=== PATIENT | female | born 1995 | race Caucasian/White ===

== ENCOUNTER 2018-04-07 13:39 | Outpatient (REF) | payer BC, SELFPAY ==
--- NOTE | 2018-04-07 11:30 | PAPFT_PTH ---
PATIENT: Yolande Crandall LOC: [facility] U#:[id number] AGE/SX: 22/F ROOM: RE04/07/[address]: PAGE Watson : 1995 BED: DIS: 04/07/2018 SPEC #: [id number] RECD: 04/07/18 17:51 STATUS: LILIANA RETrinity #: [id number] KATY: 04/07/18 11:[address]: Shadia Teran DEPT: [facility] Cytology RECD BY: Maday Lehman ENTERED: 04/07/18 17:51 SP TYPE: PAPFT FELIPE DR: Unknown,Unknown Tissues: 1 - CX/ENDOCX FOR PAP SMEARS Procedures: PAP THIN PREP/[facility] Screening Comments: [id number]
== END 2018-04-07 13:59 ==
LOC: LBN 13:39
PROVIDERS: Visit Provider Nurse Practitioner Family
DX: Z12.4 Encounter for screening for malignant neoplasm of cervix (principal)
CPT/HCPCS: 88142

== ENCOUNTER 2018-07-30 13:58 | Outpatient (REF) | payer BC, SELFPAY ==
[2018-08-03 13:51] LABS: Chlamydia Result Negative; GC Result Negative; Specimen Description CERVIX
== END 2018-07-30 14:18 ==
LOC: LBN 13:58
PROVIDERS: Visit Provider Nurse Practitioner Women's Health
DX: Z11.3 Encounter for screening for infections with a predominantly sexual mode of transmission (principal)
CPT/HCPCS: 87491; 87591

== ENCOUNTER 2019-09-03 12:38 | Outpatient (REF) | payer BC, SELFPAY ==
--- NOTE | 2019-09-03 10:15 | PAPFT_PTH ---
PATIENT: Yolande Crandall LOC: [facility] U#:[id number] AGE/SX: 24/F ROOM: RE09/03/[address]: PAGE Watson : 1995 BED: DIS: 09/03/2019 SPEC #: [id number] RECD: 09/03/19 13:04 STATUS: LILIANA RETrinity #: [id number] KATY: 09/03/19 10:[address]: Shadia Teran DEPT: [facility] Cytology RECD BY: Maday Lehman ENTERED: 09/03/19 13:04 SP TYPE: PAPFT OT DR: Unknown,Unknown Tissues: 1 - CX/ENDOCX FOR PAP SMEARS Procedures: PAP THIN PREP/UVM Screening HPV DNA PROBE Comments: [id number]
[2019-09-06 14:37] LABS: GC Result Negative (Negative)
[2019-09-06 15:34] LABS: Chlamydia Result Positive (Negative)
== END 2019-09-03 12:58 ==
LOC: LBN 12:38
PROVIDERS: Visit Provider Nurse Practitioner Family
DX: Z11.3 Encounter for screening for infections with a predominantly sexual mode of transmission (principal); Z12.4 Encounter for screening for malignant neoplasm of cervix
CPT/HCPCS: 87491; 87591; 88142; 87624

== ENCOUNTER → 2021-04-30 12:21 | Outpatient (CLI) | payer BC, SELFPAY ==
--- NOTE | 2021-04-30 12:00 | DI.US_ITS ---
Exam(s) US OB 2-3 TRIMESTER W MOD EXAM: US OB 2-3 TRIMESTER W MOD CLINICAL HISTORY: unknown LMP, likely >12 weeks, need LUISITO, modified - pt around 15 wks.. TECHNIQUE: Transabdominal obstetrical ultrasound was performed. COMPARISON: No exams were available for comparison FINDINGS: There is a single viable intrauterine gestation with cardiac activity identified-152 bpm. Amniotic fluid: There is a normal amount of amniotic fluid. Placental location: The placenta is anterior grade 0,with no evidence of placenta previa.Distance fro m the tip of placenta to the internal cervical os is [address] this at approximately 16 weeks gestational age. BPD measures 16 weeks and 0 days HC measures 16 weeks and 1 day AC measures 16 weeks and 3 days FL measures 15 weeks and 1 day Estimated weight is 138 gm-0 pounds 5 ounces IMPRESSION:: Single viable intrauterine gestation which is approximately 16 weeks gestational age, i mplying an LUISITO of October 15, 2021. The placenta is anterior grade 0 with no evidence of placenta previa. There is a normal amount of amniotic fluid. DATA REPOSITORY:
== END ==
PROVIDERS: Visit Provider Advanced Practice Midwife
DX: Z34.92 Encounter for supervision of normal pregnancy, unspecified, second trimester (principal)
CPT/HCPCS: 76805

== ENCOUNTER 2021-05-08 11:22 | Outpatient (REF) | payer BC, SELFPAY ==
[2021-05-08 11:10] LABS: Kit/Specimen SENT
[2021-05-08 11:38] LABS: Abs Immature Grans 0.05 10^3/uL (0.0-0.06); Absolute Basophil Count 0.02 10^3/uL (0.0-0.2); Absolute Eosinophil Count 0.03 10^3/uL (0.0-0.7); Absolute Lymphocyte Count 1.76 10^3/uL (1.2-3.4); Absolute Monocyte Count 0.52 10^3/uL (0.1-0.8); Absolute Neutrophil Count 8.14 10^3/uL (1.2-6.7); Basophils % 0.2; Eosinophils % 0.3; HCT 35.9 % (36.0-46.0); HGB 11.9 g/dL (11.2-15.7); Immature Grans % 0.5; Lymphocytes % 16.7; MCH 31.3 pg (27.0-33.0); MCHC 33.1 % (32.0-36.0); MCV 94.5 fL (80-95); MPV 10.2 fL (8.0-11.0); Monocytes % 4.9; Neutrophils % 77.4; Nucleated RBC 0 %; Platelet Count 294 10^3/uL (130-400); RDW 12.3 % (11.7-14.6); RDW-SD 42.9 fL; WBC 10.52 10^3/uL (4.4-10.8)
[2021-05-08 14:12] LABS: *AMPHETAMINES SCREEN URINE Negative (Negative); *BARBITURATES SCREEN URINE Negative (Negative); *BENZODIAZEPINES SCREEN URINE Negative (Negative); Cannabinoids THC Negative (Negative); Cocaine Screen,Urine Negative (Negative); METHADONE URINE SCREEN Negative (Negative); OPIATES URINE SCREEN Negative (Negative); Tricyclic Antidepressants Negative (Negative)
[2021-05-09 09:07] LABS: Hepatitis B Surface Ag Negative (Negative)
[2021-05-09 09:39] LABS: Hepatitis C Ab w Rflx HCV PCR Negative (Negative)
[2021-05-09 09:54] LABS: HIV-1/2 Ag & Ab Screen Negative (Negative)
[2021-05-09 11:20] LABS: Rubella IgG Ab (UVM) Positive (See Note); Varicella IgG Antibody Positive (See Note)
[2021-05-09 14:42] LABS: Syphilis Total Ab w/Reflex Nonreactive (Nonreactive)
[2021-05-09 16:17] LABS: Chlamydia Result Negative (Negative); GC Result Negative (Negative)
[2021-05-15 15:06] LABS: Result Summary NEGATIVE; Specimen WB Whole Blood
[2021-05-16 09:46] LABS: Buprenorphine Negative ng/mL (Cutoff: 5.0); Norbuprenorphine Negative ng/mL (Cutoff: 2.5)
[2021-05-16 22:21] LABS: Specimen WB Whole Blood
== END 2021-05-08 11:23 | disposition home or self-care (01) ==
LOC: LBO 11:22
PROVIDERS: Visit Provider Advanced Practice Midwife
DX: Z34.92 Encounter for supervision of normal pregnancy, unspecified, second trimester; Z36.89 Encounter for other specified antenatal screening; Z3A.16 16 weeks gestation of pregnancy
CPT/HCPCS: 36415; 80307; 81329; 86787; 86803; 86850; 86900; 86901; 87340; 87389; 87491; 87591; 81220; 85025; 86762; 86780; 87086; 87480; 87510; 87660

== ENCOUNTER 2021-05-08 14:37 | Outpatient (REF) | payer BC, SELFPAY ==
--- NOTE | 2021-05-08 09:50 | PAPFT_PTH ---
PATIENT: Yolande Crandall LOC: [facility] U#:[id number] AGE/SX: 25/F ROOM: RE05/08/[address]: Frances Raymundo CNM : 1995 BED: DIS: 05/08/2021 SPEC #: [id number] RECD: 05/08/21 18:10 STATUS: LILIANA REQ #: [id number] KATY: 05/08/21 09:[address]: Frances Raymundo DEPT: [facility] Cytology RECD BY: Maday Lehman ENTERED: 05/08/21 18:11 SP TYPE: PAPFT OTHR DR: Unknown,Unknown Tissues: 1 - CX/ENDOCX FOR PAP SMEARS Procedures: PAP THIN PREP/UVM Screening Comments: [id number]
== END 2021-05-08 14:38 | disposition home or self-care (01) ==
LOC: LBN 14:37
PROVIDERS: Visit Provider Advanced Practice Midwife
DX: Z12.4 Encounter for screening for malignant neoplasm of cervix (principal)
CPT/HCPCS: 88142

== ENCOUNTER 2021-05-22 02:49 | Outpatient (CLI) | payer BC, SELFPAY ==
[2021-05-22 10:08] LABS: Glucose,1 Hr (Glucola) 79 mg/dL (80-140)
== END 2021-05-22 02:50 | disposition home or self-care (01) ==
LOC: LBO 02:49
PROVIDERS: Advanced Practice Midwife; Visit Provider Advanced Practice Midwife
DX: Z34.92 Encounter for supervision of normal pregnancy, unspecified, second trimester (principal); Z3A.19 19 weeks gestation of pregnancy
CPT/HCPCS: 36415; 82950

== ENCOUNTER 2021-07-18 00:35 | Outpatient (CLI) | payer BC, SELFPAY ==
[2021-07-18 10:30] VITALS: BP 120/73; PULSE 113; RESP 20; TEMP 36.9; O2SAT 99
[2021-07-18] MEDS: Normal Saline 500 ML 30 ML IV (10:42)
[2021-07-18] MEDS: Normal Saline Flush 10 ML SYR IVP (10:42)
[2021-07-18 10:52] VITALS: BP 120/73; PULSE 113; RESP 20; TEMP 36.9; O2SAT 99
[2021-07-18 11:11] VITALS: BP 108/69; PULSE 108; RESP 22; TEMP 37.5; O2SAT 98
[2021-07-18 11:32] VITALS: BP 117/80; PULSE 111; RESP 24; TEMP 37.6; O2SAT 98
[2021-07-18 12:18] VITALS: BP 117/77; PULSE 101; RESP 22; TEMP 37; O2SAT 98
== END 2021-07-18 12:32 | disposition home or self-care (01) ==
LOC: INF 00:37
PROVIDERS: Visit Provider Family Medicine
DX: U07.1 COVID-19 (principal)
CPT/HCPCS: 96365

== ENCOUNTER 2021-07-31 08:57 | Outpatient (CLI) | payer MEDICAID, SELFPAY ==
[2021-07-31 11:12] LABS: Glucose,1 Hr (Glucola) 140 mg/dL (80-140)
[2021-07-31 11:13] LABS: HCT 35.2 % (36.0-46.0); HGB 11.7 g/dL (11.2-15.7); MCH 31.1 pg (27.0-33.0); MCHC 33.2 % (32.0-36.0); MCV 93.6 fL (80-95); Platelet Count 276 10^3/uL (130-400); RBC 3.76 10^6/uL (3.93-5.22); RDW 12.4 % (11.7-14.6); RDW-SD 42.9 fL; WBC 13.48 10^3/uL (4.4-10.8)
== END 2021-07-31 08:58 | disposition home or self-care (01) ==
LOC: LBO 08:58
PROVIDERS: Visit Provider Advanced Practice Midwife
DX: Z34.93 Encounter for supervision of normal pregnancy, unspecified, third trimester (principal); Z3A.29 29 weeks gestation of pregnancy
CPT/HCPCS: 36415; 82950; 85027

== ENCOUNTER 2021-07-31 10:01 | Outpatient (CLI) | payer MEDICAID, SELFPAY ==
[2021-07-31 10:09] VITALS: BP 118/69; PULSE 86; TEMP 36.9
[2021-07-31 10:24] VITALS: BP 118/69; PULSE 86
--- NOTE | 2021-07-31 10:48 | W.OBNST ---
Date of service: 07/31/21 Time of Service: 10:48 NST Evaluation Reason for NST Reasons for Nonstress Test: DECREASED MOVEMENT Gestational Age Gestational Age in Weeks and Days: 29 Weeks and 1Days Test and Monitor Explained Test/Monitor Explained: Test Explained, Monitor Explained and Patient Verbalized Understanding Vital Signs Blood Pressure: 118/69 Pulse: 86 Temperature: 98.4 F NST Information Date on Monitor: 07/31/21 Time on Monitor: 10:13 Date off Monitor: 07/31/21 Time off Monitor: 10:30 Total Time on Monitor: 17 NST Interventions: None NST Evaluation Patient States Movement: Present FHR Baseline: 145 Variability: Moderate 6-25 bpm Accelerations: 10x10 Decelerations: None NST Results: Reactive Note NST Note Note: NST done due to perceived in intensity of movement. NST is reassuring for 29 weeks gestation with 10 X 10 or greater accelerations and moderate variability. We reviewed that placenta is anterior and may lead to some diminished intensity of movement but that she should report any further concerns as they occur. MARILYN NST Reviewed and Verified by: Frances Raymundo
[2021-07-31 10:50] VITALS: BP 118/69; PULSE 86; TEMP 36.9
== END 2021-07-31 10:30 | disposition home or self-care (01) ==
LOC: BCD 10:02 → OBS 10:07
PROVIDERS: Visit Provider Advanced Practice Midwife
DX: O36.8130 Decreased fetal movements, third trimester, not applicable or unspecified (principal); Z3A.29 29 weeks gestation of pregnancy
CPT/HCPCS: 59025

== ENCOUNTER 2021-08-08 03:51 | Outpatient (CLI) | payer MEDICAID, SELFPAY | END 2021-08-08 03:52 | disposition home or self-care (01) | LOC: LBO 03:53 | PROVIDERS: Visit Provider Advanced Practice Midwife ==

== ENCOUNTER 2021-08-16 04:16 | Outpatient (CLI) | payer MEDICAID, SELFPAY ==
[2021-08-16 09:20] LABS: Glucose 1 Hour 136 mg/dL
[2021-08-16 11:38] LABS: Glucose 3 Hour 95 mg/dL
== END 2021-08-16 04:17 | disposition home or self-care (01) ==
LOC: LBO 04:16
PROVIDERS: Visit Provider Advanced Practice Midwife
DX: Z34.93 Encounter for supervision of normal pregnancy, unspecified, third trimester (principal)
CPT/HCPCS: 36415; 82951

== ENCOUNTER → 2021-09-11 01:08 | Outpatient (CLI) | payer BC, MEDICAID, SELFPAY ==
--- NOTE | 2021-09-11 07:00 | DI.US_ITS ---
Exam(s) US OB LISA WEIGHT EXAM: US OB LISA WEIGHT CLINICAL HISTORY: Covid infection in ,O98.513,U07.1. TECHNIQUE: Transabdominal obstetrical ultrasound performed. COMPARISON: US US OB 2-3 TRIMESTER from 05/29/2021 FINDINGS: Transabdominal obstetrical ultrasound performed. FINDINGS: Number of fetuses: One. position: Cephalic. Placental location: Grade 1 anterior placenta. No evidence of previa. BIOMETRIC DATA: BPD: 88 mm = 35 weeks 2 days HC: 323 mm = 36 weeks 4 days AC: 324 mm = 36 weeks 2 days FL: 69 mm = 35 weeks 4 days EFW: 2824 grms 72% Composite Age: 36 weeks EDC: 10/09/2021 Heart Rate: 152BPM Amniotic fluid index: 17.1 cm. Visually, amount of fluid is within normal limits. IMPRESSION: 1. Single live intrauterine gestation as above. 2. Estimated weight is 2824gms. 3. Amniotic fluid index is 17.1 cm. Visually within normal limits. DATA REPOSITORY:
== END ==
PROVIDERS: Visit Provider Advanced Practice Midwife
DX: O98.513 Other viral diseases complicating pregnancy, third trimester (principal); U07.1 COVID-19; Z3A.36 36 weeks gestation of pregnancy
CPT/HCPCS: 76816

== ENCOUNTER 2021-09-18 15:47 | Outpatient (REF) | payer BC, MEDICAID, SELFPAY ==
[2021-09-18 21:58] LABS: *AMPHETAMINES SCREEN URINE Negative (Negative); *BARBITURATES SCREEN URINE Negative (Negative); *BENZODIAZEPINES SCREEN URINE Negative (Negative); Cannabinoids THC Negative (Negative); Cocaine Screen,Urine Negative (Negative); METHADONE URINE SCREEN Negative (Negative); OPIATES URINE SCREEN Negative (Negative)
[2021-09-18 22:00] LABS: Tricyclic Antidepressants Negative (Negative)
[2021-09-22 13:51] LABS: Buprenorphine Negative ng/mL (Cutoff: 5.0)
== END 2021-09-18 15:48 | disposition home or self-care (01) ==
LOC: LBN 15:47
PROVIDERS: Visit Provider Advanced Practice Midwife
DX: Z34.93 Encounter for supervision of normal pregnancy, unspecified, third trimester (principal); Z36.85 Encounter for antenatal screening for Streptococcus B; Z3A.36 36 weeks gestation of pregnancy
CPT/HCPCS: 80307; 87081

== ENCOUNTER 2021-10-02 11:39 | Outpatient (CLI) | payer BC, MEDICAID, SELFPAY ==
[2021-10-02 11:48] VITALS: BP 131/83; PULSE 100; TEMP 36.7
[2021-10-02 11:58] VITALS: BP 131/83; PULSE 100
--- NOTE | 2021-10-02 12:14 | PDOC.NST_ITS ---
Date of service: 10/02/21 Time of Service: 12:14 NST Evaluation Reason for NST Reasons for Nonstress Test: DECREASED MOVEMENT Gestational Age Gestational Age in Weeks and Days: 29 Weeks and 1Days Vital Signs Blood Pressure: 131/83 NST Evaluation Patient States Movement: Present FHR Baseline: 135 Variability: Moderate 6-25 bpm Accelerations: 15x15 Decelerations: None NST Results: Reactive Note NST Note Note: Yolande has been noticing decreased movement. She was seen at [facility] today. The baby is active now. Reactive NST. NST Reviewed and Verified by: Frances Dominguez
[2021-10-03 08:31] VITALS: BP 131/83
== END 2021-10-02 12:15 | disposition home or self-care (01) ==
LOC: BCD 11:39 → OBS 11:45
PROVIDERS: PCP Advanced Practice Midwife; Visit Provider Advanced Practice Midwife
DX: O36.8130 Decreased fetal movements, third trimester, not applicable or unspecified (principal); O26.893 Other specified pregnancy related conditions, third trimester; Z3A.38 38 weeks gestation of pregnancy
CPT/HCPCS: 59025

== ENCOUNTER 2021-10-21 18:30 | Inpatient (IN) | payer BC, MEDICAID, SELFPAY ==
[2021-10-21] VITALS (46 sets, daily range): BP systolic 109–161; BP diastolic 55–105; PULSE 0–153; RESP 18; TEMP 36.8; O2SAT 97–100; BMI 35.1
[2021-10-21 20:04] LABS: Source Nasal/Nares
[2021-10-21 20:43] LABS: COVID-19 PCR Negative (Negative)
[2021-10-21] MEDS: Normal Saline Flush 10 ML SYR IVP (21:50)
[2021-10-21 22:00] LABS: HCT 37.6 % (36.0-46.0); HGB 12.6 g/dL (11.2-15.7); MCH 29.8 pg (27.0-33.0); MCHC 33.5 % (32.0-36.0); MCV 88.9 fL (80-95); MPV 10.7 fL (8.0-11.0); Platelet Count 249 10^3/uL (130-400); RBC 4.23 10^6/uL (3.93-5.22); RDW 13.3 % (11.7-14.6); RDW-SD 43.4 fL; WBC 16.99 10^3/uL (4.4-10.8)
[2021-10-21] MEDS: Lactated Ringers 1,000 ML 125 ML IV (22:00)
--- NOTE | 2021-10-21 22:25 | W.ANESPRE ---
General Info Date of Service Date Performed: 10/21/21 Height: 5 ft 2 in Weight: 87.09 kg Body Mass Index (BMI): 35.1 Meds Allergies and Home Medications Allergies Allergy/AdvReac Type Severity Reaction Status Date / Time No Known Allergies Allergy Verified 10/21/21 18:36 Home Medication Medication Instructions Recorded vitamins with calcium 1 tab PO DAILY #90 tab 04/23/21 no.72-iron 29 mg-folic acid 1 mg tablet ( Plus) aspirin 81 mg tablet,delayed 81 mg PO DAILY #90 tab 05/22/21 release Current Visit Medications: Current Medications Generic Name Dose Route Start Last Admin Trade Name Freq PRN Reason Stop Dose Admin Sodium Chloride 500 mls @ 0 mls/hr 10/21/21 21:36 Saline 500ml Bag IV PRN PRN As Directed Sodium Chloride 500 mls @ 0 mls/hr 10/21/21 21:42 Saline 500ml Bag IV PRN PRN As Directed IV Miscellaneous Supplies 1 each 10/21/21 21:45 Iv Access IV DIRECTED ADONAY IV Miscellaneous Supplies 1 each 10/21/21 21:45 Iv Access IV DIRECTED ADONAY Sodium Chloride 0 ml 10/21/21 21:36 Normal Saline Flush 10 Ml Syr IVP PRN PRN Sodium Chloride 0 ml 10/21/21 21:42 Normal Saline Flush 10 Ml Syr IVP PRN PRN PFSH Active Problems Active Problems: Problem Status Onset Code COVID-19 affecting in third trimester O98.513, U07.1 BMI 30.0-30.9,adult Z68.30 Z34.90 Exercise-induced asthma 10/21/12 J45.990 Medical History Medical History (Updated 10/21/21 @ 22:33 by Frances Dominguez CNM) Contraception Date of last menstrual period (LMP) unknown Missed menses Positive blood test Tobacco Smoking/Tobacco Use Status: Former Tobacco Use Second hand exposure: No Substance Use Substance use: Never Prental History History 1 Para 0 Hx # Term Pregnancies 0 Multiple births 0 Hx # Pregnancies 0 Ectopic pregnancies 0 AB induced 0 Hx Number of Living Children 0 AB spontaneous 0 Vital Signs and Lab Results Vital Signs Most Recent Vital Signs in EMR: Most Recent Vital Signs Temp Pulse Resp BP 36.8 C 110 H 18 136/88 10/21/21 18:45 10/21/21 22:21 10/21/21 18:45 10/21/21 21:22 Lab Results Result Diagrams: 10/21/21 21:47 Blood Type / Crossmatch: Patient ABO/Rh A Positive 10/21/21 Antibody Screen NEGATIVE 10/21/21 Complete Blood Count: White Blood Count 16.99 10^3/uL (4.4-10.8) H 10/21/21 21:47 10/21/21 Red Blood Count 4.23 10^6/uL (3.93-5.22) 10/21/21 21:47 10/21/21 Hemoglobin 12.6 g/dL (11.2-15.7) 10/21/21 21:47 10/21/21 Hematocrit 37.6 % (36.0-46.0) 10/21/21 21:47 10/21/21 Platelet Count 249 10^3/uL (130-400) 10/21/21 21:47 10/21/21 Complete Metabolic Panel: No Data to Display Liver Function Panel: No Data to Display Coagulation Panel: No Data to Display Cardiac Panel: No Data to Display Arterial Blood Gas: No Data to Display Venous Blood Gas: No Data to Display Pancreas Panel: No Data to Display Thyroid Panel: No Data to Display Infectious Disease: Coronavirus (COVID-19)(PCR) Negative (Negative) 10/21/21 19:30 10/21/21 Coronavirus 2019 Source Nasal/Nares 10/21/21 19:30 10/21/21 Blood Cultures: No Data to Display Toxicology Panel: No Data to Display Panel: No Data to Display Anesthesia Assessment and Plan Anesthesia History Personal History: No History of Anesthesia Complications Family History: No Family History of Anesthesia Complications Exercise Tolerance Exercise Tolerance: Metabolic Equivalents>4 Pertinent Negatives Pertinent Negatives: No Major Cardiovascular Symptoms or Complaints and No Major Pulmonary Symptoms or Complaints (Well controlled asthma) Cardiac & Pulmonary Exam Cardiac Exam: Normal S1/S2 Heart Sounds Pulmonary Exam: Clear Bilateral Breath Sounds Implantable Cardiac Device Does patient have a Pacemaker or an ICD?: No Airway Exam Known Difficult Airway: No Mallampati Class: 3 Mouth Opening: Normal (> 3cm) Thyromental Distance: Greater than 3 cm Neck Range of Motion: Full ROM Neck Circumference: Normal Teeth Condition: Normal Dentition ASA Classification ASA Score: ASA 2 Emergency Case?: No NPO Status NPO Status: Full Stomach Status Status: Confirmed Anesthesia Plan Resuscitation Status: Full Code Anesthesia Technique: Spinal Anesthesia Airway Planned: Natural Airway Monitors Used: Standard Monitors
--- NOTE | 2021-10-21 22:29 | W.PM.OBHPL1 ---
Date of service: 10/21/21 Time of Service: 22:29 Assessment and Plan Assessment and plan (1) Spontaneous onset of labor: Status: Acute Assessment and plan: Admit to Center. Comfort measures. Prepare for epidural analgesia. Covid- 19 test. Anticipate . OB-HPI Labor/Delivery History of Present Illness Reason for Visit: LABOR Chief Complaint: Uterine Contractions. LUISITO Calculator Estimated Delivery Date Method Current WG Current Estimate 10/15/21 Ultrasound #1 40w 6d Comments: Yolande has been experiencing contractions all day. they were 5 minutes apart and she came in for rule out labor. After a 2 hour observation period, her cervix was 5 cms dilated and she is requesting an epidural. History of Present Expected Delivery Route/Plan - CNM FOB/yuridia Raza (first child) BB yes to circ, Yunier Echeverria Prefers no medication in labor if possible GBS negative Specific Issues/Plan 1. Desired CF, SMA and ClariTest (will want gender in envelope for sister to get) 1a. CF/SMA neg; ClariTest is LR X 4 male fetus 2. Late entry into care, unplanned but accepted 3. Not COVID vaccinated, FOB also no vaccinated, they do not intend to be vaccinated 3a. Yolande and her partner have covid-19 infection - monoclonal antibodies received 07/16/21. 3b. US is done for growth due to COVID: 09/11/21 2824 g 72% LISA 17.1 4. To start low dose ASA 81 mg daily d/t nulliparity and BMI>30. 5. BMI > 30 - early GTT 79. At 28 wks: 1 hour glucola 140, 3 hour-75,136,121,95 PFSH All Active Problems (Updated 10/21/21 @ 22:33 by Frances Dominguez CNM) Spontaneous onset of labor (Acute) COVID-19 affecting in third trimester (Acute) BMI 30.0-30.9,adult (Acute) (Acute) Exercise-induced asthma (Acute 10/21/12) Medical History (Updated 10/21/21 @ 22:33 by Frances Dominguez CNM) Contraception Date of last menstrual period (LMP) unknown Missed menses Positive blood test Family History (Updated 05/08/21 @ 10:25 by Frances Raymundo CNM) Mother Alive and well Father Alive and well Sister Alive and well Brother Alive and well Grandmother Alive and well Paternal Grandmother Cancer breast CA, at age 36 Social History (Updated 05/08/21 @ 09:28 by Frances Raymundo CNM) Smoking/Tobacco Use Status: Former Tobacco Use Tobacco: How many years used: 4 Second Hand Exposure: No Smoking risk assessment performed?: Yes Drug use: Never current occupation: [employer] What type of physical activity do you participate in: none Do you feel safe in your relationship?: Yes Female Reproductive History Menstrual control method: pills History History 1 Para 0 Hx # Term Pregnancies 0 Multiple births 0 Hx # Pregnancies 0 Ectopic pregnancies 0 AB induced 0 Hx Number of Living Children 0 AB spontaneous 0 Meds Allergies and Home Medications Allergies Allergy/AdvReac Type Severity Reaction Status Date / Time No Known Allergies Allergy Verified 10/21/21 18:36 Home Medications Medication Instructions Recorded Confirmed Type vitamins with calcium 1 tab PO DAILY #90 tab 04/23/21 10/21/21 Rx no.72-iron 29 mg-folic acid 1 mg tablet ( Plus) aspirin 81 mg tablet,delayed 81 mg PO DAILY #90 tab 05/22/21 10/21/21 Rx release Exam Physical Exam Vital signs: Temp Pulse Resp BP 98.2 F 111 H 18 136/88 10/21/21 18:45 10/21/21 22:25 10/21/21 18:45 10/21/21 21:22 Detailed Labor and Delivery Exam Dilation: 5 Effacement (%): 80 station: -2 Cervix position: posterior Consistency: soft Bright Score: Cervical Points Exam 0 1 2 3 Dilation Closed 1-2cm 3-4 cm 5-6cm Effacement 0-30% 40-50% 60-70% 80% Consistency Firm Medium Soft Station -3 -2 -1,0 +1,+2 Position Posterior Mid Anterior Amniotic Membrane Status: Intact Contraction Frequency(min): every2-4 Contraction Duration(sec): 50-60 Contraction Intensity: Moderate Fetus A Heart Rate Baseline: 130 Monitor Accelerations: 15 X 15 Monitor Decelerations: None Variability: Moderate (6-25 BPM) Presentation: Vertex Categories: Category I Respiratory Exam Respiratory Exam: Normal Cardiovascular Exam Cardiovascular Exam: Normal Abdominal Exam Abdominal Exam: Normal Exam Exam: Normal Extremities Exam Extremities Exam: Normal Skin Exam Skin Exam: Normal Psychiatric Exam Psychiatric Exam: Normal Results Results Group Beta Strep: Negative Blood Type: A+ Rubella Status: Immune Varicella Immunity: Immune Abnormal Lab Findings: Abnormal Labs 10/21/21 21:47 WBC 16.99 H Risk Assessment Risk for Shoulder Dystocia Historical/Initial OB: POSITIVE FOR: Pre- BMI>30; NEGATIVE FOR: Pelvic Abnormality, Previous Shoulder Dystocia or Previous Macrosomia 40 Weeks: NEGATIVE FOR: EFW> 4500 gms, Maternal Weight Gain >40lb or Post Dates Increased Risk?: No Counseling: no increased risk other then primiparous status Delivery Plan @ 40 wks: spont labor, Risk for Pre-Eclampsia Daily Dose ASA Indicated: Yes (Nulliparity/BMI) Date Initiated/Initials: advised to start 05/22/21 JK Yes, if one or more: NEGATIVE FOR: Hx Pre-E/Gest HTN, Chronic HTN, Multiple Gestation, Pre-gestational DM, Renal Disease, Systemic Lupus or APA Syndrome Yes, if 2 or more: POSITIVE FOR: Nulliparity and BMI>30; NEGATIVE FOR: Age>= 35 yrs, >10yr btwn pregnancies, ethinicty, Mother/Sister w/ Pre-E or Previous IUGR Risk for Post- Hemorrhage Initial: NEGATIVE FOR: Multiple Gestation, Previous PPH, Known Clotting Deficiency, Grand Multiparity or Anticoagulation At Risk?: No Counseled re: Active Management: Yes Risks Reviewed Risks Reviewed Upon Admission: Yes
[2021-10-21] MEDS: FentaNYL/ROPIvacaine 2 mcg/ml and 0.1% 200 ML CADD Cassette EP (23:15)
--- NOTE | 2021-10-21 23:20 | W.ANESNEU ---
Epidural/Spinal Catheter Date Performed: 10/21/21 Procedure Start: 22:49 Procedure Stop: 23:35 Requesting Provider: Frances Raymundo Procedure Location: Obstetrics Reason Performed: Labor Epidural Standard Monitors Applied: Blood Pressure, SpO2 and See EMR for corresponding vital signs Patient Position: Sitting Sedation Given (Indicate Dose Given): No Sedation given Patient Mental Status: Awake Sterility: Hand Hygiene, Surgical Cap, Surgical Mask, Sterile Gloves, Sterile Drape/Sheet and Chlorhexidine Procedure Location: L3-L4 Interspace Epidural Needle: Tuohy 18 Gauge Needle Length: 3.5 Inch Needle Approach: Midline Epidural Procedure: Skin Prepped, Sterile Drape Placed, 1% Lidocaine to skin and subcutaneous tissue with 25G needle, Tuohy Needle placed, ROLA to Saline Used, Epidural Catheter Placed, Negative Heme, Negative CSF Flow and Tuohy Needle Removed Catheter Placed?: Catheter Placed Test Dose (Indicate Dose Given): 3ml 1.5% Lidocaine with 1:200K Epinephrine Given and Negative Test Dose Loss of Resistance Depth (cm): 6 Catheter depth at skin (cm): 12 Dressing: Sorbaview Dressing Placed, Mastisol Used and Dressing reinforced with Tape Epidural Provider Bolus (Indicate Dose Given): Total bolus dose given in 3-5 ml divided doses and Total Ropivacaine 0.1% with Fentanyl 2mcg/ml Given from pump. (ml) Dose:: 15 ml Additives (Indicate Dose Given ): None Infusion Medication: Medication Infusion Began Medication Infusion: Ropivacaine 0.1% with Fentanyl 2mcg/ml Maintenance Infusion Rate (ml/hour): 10 PCEA Bolus Dose (ml): 5 Post Procedure Pain score (0-10): 0 Block Level: N/A Paresthesia: None Ultrasound: Not Used Number of Attempts (See previous attempts in note section): 2 Procedure Tolerated: Patient tolerated well Procedure Outcome: Successful Procedure Comment:: 1st attempt at one space below with + ROLA, after threading catheter noted blood filling catheter, attempted to withdraw catheter with no improvement and needle/catheter removed. 2nd attempt with negative test dose at 2312. Pt. with good relief. Did educate patient and RN after pulling catheter is numbness/motor does not return after a few hours to baseline or if numbness/motor sensation/strength diminishes after returning to baseline, to notify anesthesia as we were in a blood vessel with the first attempt. Educated patient in PCEA use as well. Pt. with no questions. Performed By: Rodriguez Thomas
--- NOTE | 2021-10-21 23:32 | W.PM.OBNL1 ---
Date of service: 10/21/21 Time of Service: 23:32 Pelvic Exam Dilation: 7 Effacement (%): 100 station: -2 Cervix Position: mid Consistency: soft Vaginal Exam Presentation: Vertex Contractions Monitor Mode: External Contraction Frequency(min): 2-5 Contraction Duration(sec): 50-60 Intensity: Moderate/Strong Fetus A Monitor: External (US) Heart Rate Baseline: 120 Presentation: Vertex Variability: Moderate (6-25 BPM) Categories: Category I FHR Rhythm: Regular Accelerations: 15 X 15 Decelerations: None Assessment and Plan Assessment and plan (1) Spontaneous onset of labor: Status: Acute Assessment and plan: Category 1 tracing. Maternal tachycardia. Will continue to assess vital signs and labor progress. Consider pitocin augmentation if indicated. Anticipate Objective Abnormal lab results 10/21/21 Range/Units 21:47 WBC 16.99 H (4.4-10.8) 10^3/uL Temp Pulse Resp BP Pulse Ox 98.2 F 137 H 18 144/64 H 100 10/21/21 18:45 10/21/21 23:30 10/21/21 18:45 10/21/21 23:30 10/21/21 23:25 Laboratory Results WBC 16.99 10^3/uL (4.4-10.8) H 10/21/21 21:47 RBC 4.23 10^6/uL (3.93-5.22) 10/21/21 21:47 Hgb 12.6 g/dL (11.2-15.7) 10/21/21 21:47 Hct 37.6 % (36.0-46.0) 10/21/21 21:47 MCV 88.9 fL (80-95) 10/21/21 21:47 MCH 29.8 pg (27.0-33.0) 10/21/21 21:47 MCHC 33.5 % (32.0-36.0) 10/21/21 21:47 RDW 13.3 % (11.7-14.6) 10/21/21 21:47 Plt Count 249 10^3/uL (130-400) 10/21/21 21:47 MPV 10.7 fL (8.0-11.0) 10/21/21 21:47 COVID-19 Source Nasal/Nares 10/21/21 19:30 SARS-CoV-2 (PCR) Negative (Negative) 10/21/21 19:30 Patient ABO/Rh A Positive 10/21/21 21:47 Antibody Screen NEGATIVE 10/21/21 21:47 Subjective Interval history since last seen: Epidural placed with good effect. B.P. 130-140/80-90. Maternal HR 110-150 after epidural placed. B.P. 144/64 after epidural placed. Results Hemoglobin/Hematocrit: Hgb 12.6 g/dL (11.2-15.7) 10/21/21 21:47 Hct 37.6 % (36.0-46.0) 10/21/21 21:47 Abnormal Lab Findings: Abnormal Labs 10/21/21 21:47 WBC 16.99 H
[2021-10-22] VITALS (76 sets, daily range): BP systolic 107–166; BP diastolic 56–100; PULSE 96–157; RESP 14–16; TEMP 37–37.4; O2SAT 96–100
[2021-10-22] MEDS: Lactated Ringers 1,000 ML 125 ML IV (01:01)
--- NOTE | 2021-10-22 01:01 | W.PM.OBNL1 ---
Date of service: 10/22/21 Time of Service: 01:01 Pelvic Exam Dilation: 8 Effacement (%): 100 station: -1 Comments: AROM performed for moderate meconium stained fluid. Contractions Monitor Mode: External Contraction Frequency(min): evry 3 min Contraction Duration(sec): 60 Intensity: Moderate/Strong Fetus A Monitor: External (US) Heart Rate Baseline: 160 Presentation: Vertex Variability: Moderate (6-25 BPM) Categories: Category II FHR Rhythm: Regular Accelerations: 15 X 15 Decelerations: Variable and Prolonged Recurrence: Episodic Assessment Note: FHR decelleration down to 50-60 while patient resting on right side. She was moved to the left side with recurrent deep variable decellerations. I examined Yolande and she was 8-9 cms with a large bulging bag of water. No cord palpable. The heart rate returned to a rate of 160-170 with moderate variability. I requested Dr. Escalera to come to the Center. A disla catheter was placed and an IV bolus of 500 cc was given. After Dr. Escalera's arrival, artificial rupture of membranes was performed for a moderate amount of meconium stained fluid. A scalp electrode was placed and there are intermittent variable decellerations occurring with a baseline heart rate of 160. Assessment and Plan Assessment and plan (1) Variable deceleration: Status: Acute Assessment and plan: urinalysis by catheterized specimen is +1. protein/creatinene ratio was sent. Dr Escalera is present on the unit. Will continue to assess heart rate pattern. Anticipate if FHR remains stable. (2) Tachycardia: Start date: 10/21/21 Start time: 22:00 Status: Acute Assessment and plan: continue to assess maternal heart rate. Objective Abnormal lab results 10/21/21 Range/Units 21:47 WBC 16.99 H (4.4-10.8) 10^3/uL Temp Pulse Resp BP Pulse Ox 98.2 F 127 H 18 142/100 H 100 10/21/21 18:45 10/22/21 00:54 10/21/21 18:45 10/22/21 00:54 10/21/21 23:25 Laboratory Results WBC 16.99 10^3/uL (4.4-10.8) H 10/21/21 21:47 RBC 4.23 10^6/uL (3.93-5.22) 10/21/21 21:47 Hgb 12.6 g/dL (11.2-15.7) 10/21/21 21:47 Hct 37.6 % (36.0-46.0) 10/21/21 21:47 MCV 88.9 fL (80-95) 10/21/21 21:47 MCH 29.8 pg (27.0-33.0) 10/21/21 21:47 MCHC 33.5 % (32.0-36.0) 10/21/21 21:47 RDW 13.3 % (11.7-14.6) 10/21/21 21:47 Plt Count 249 10^3/uL (130-400) 10/21/21 21:47 MPV 10.7 fL (8.0-11.0) 10/21/21 21:47 COVID-19 Source Nasal/Nares 10/21/21 19:30 SARS-CoV-2 (PCR) Negative (Negative) 10/21/21 19:30 Patient ABO/Rh A Positive 10/21/21 21:47 Antibody Screen NEGATIVE 10/21/21 21:47 Subjective Interval history since last seen: Yolande is resting comfortably. Her HR is 110-130s. BP was elevated initially after the epidural at 140s/60-70 and 160/62. The B.P. was 110/56 while resting on her right side and prolonged decellerations occurred at 0030 Results Hemoglobin/Hematocrit: Hgb 12.6 g/dL (11.2-15.7) 10/21/21 21:47 Hct 37.6 % (36.0-46.0) 10/21/21 21:47 Abnormal Lab Findings: Abnormal Labs 10/21/21 21:47 WBC 16.99 H
[2021-10-22 01:54] LABS: PROTEIN 67.2 mg/dL; Prot/Crea Ur Ratio 0.56
[2021-10-22 02:29] LABS: ALT 18 U/L (14-59); AST 17 U/L (15-37); Albumin 2.7 g/dL (3.4-5.0); Alkaline Phosphatase 178 U/L (46-116); Anion Gap 13.4 mmol/L (3-11); BUN 12 mg/dL (7-18); Bilirubin, Total 0.3 mg/dL (0.2-1.0); CO2 18.6 mmol/L (21.0-32.0); CREATININE 0.7 mg/dL (0.55-1.02); Calcium 8.4 mg/dL (8.5-10.1); Chloride 103 mmol/L (98-107); Glucose 125 mg/dL (74-106); Potassium 3.8 mmol/L (3.5-5.1); Sodium 135 mmol/L (136-145); Total Protein 6.4 g/dL (6.4-8.2); Uric Acid 4.2 mg/dL (2.6-6.0)
--- NOTE | 2021-10-22 04:12 | W.PM.OBNL1 ---
Date of service: 10/22/21 Time of Service: 04:12 Pelvic Exam Dilation: 10 station: +2 Pooling: Positive Contractions Monitor Mode: External Contraction Frequency(min): every 2 Contraction Duration(sec): 60-70 Intensity: Strong Fetus A Monitor: External (US) Heart Rate Baseline: 140 Presentation: Cephalic Variability: Moderate (6-25 BPM) Categories: Category II (position changes and pauses in pushing encouraged, oxygen via mask) CategoryII Plan of Care: Intrauterine Resuscitation, Team Huddle and Continuous Monitoring/Observation FHR Rhythm: Regular Accelerations: 15 X 15 Decelerations: Variable Recurrence: Recurrent Assessment and Plan Assessment and plan (1) Variable deceleration: Status: Acute Assessment and plan: Continue to assess heart pattern and assist with pushing. Consider vacuum delivery if indicated. Objective Abnormal lab results 10/21/21 10/22/21 Range/Units 21:47 02:10 WBC 16.99 H (4.4-10.8) 10^3/uL Sodium 135 L (136-145) mmol/L Carbon Dioxide 18.6 L (21.0-32.0) mmol/L Anion Gap 13.4 H (3-11) mmol/L Glucose 125 H (74-106) mg/dL Calcium 8.4 L (8.5-10.1) mg/dL Alkaline Phosphatase 178 H (46-116) U/L Albumin 2.7 L (3.4-5.0) g/dL Temp Pulse Resp BP Pulse Ox 98.2 F 142 H 18 125/67 100 10/21/21 18:45 10/22/21 03:14 10/21/21 18:45 10/22/21 02:54 10/22/21 03:14 Laboratory Results WBC 16.99 10^3/uL (4.4-10.8) H 10/21/21 21:47 RBC 4.23 10^6/uL (3.93-5.22) 10/21/21 21:47 Hgb 12.6 g/dL (11.2-15.7) 10/21/21 21:47 Hct 37.6 % (36.0-46.0) 10/21/21 21:47 MCV 88.9 fL (80-95) 10/21/21 21:47 MCH 29.8 pg (27.0-33.0) 10/21/21 21:47 MCHC 33.5 % (32.0-36.0) 10/21/21 21:47 RDW 13.3 % (11.7-14.6) 10/21/21 21:47 Plt Count 249 10^3/uL (130-400) 10/21/21 21:47 MPV 10.7 fL (8.0-11.0) 10/21/21 21:47 Sodium 135 mmol/L (136-145) L 10/22/21 02:10 Potassium 3.8 mmol/L (3.5-5.1) 10/22/21 02:10 Chloride 103 mmol/L (98-107) 10/22/21 02:10 Carbon Dioxide 18.6 mmol/L (21.0-32.0) L 10/22/21 02:10 Anion Gap 13.4 mmol/L (3-11) H 10/22/21 02:10 BUN 12 mg/dL (7-18) 10/22/21 02:10 Creatinine 0.7 mg/dL (0.55-1.02) 10/22/21 02:10 Estimated GFR/1.73 m2 >= 60.00 (mL/min/1.73m2) 10/22/21 02:10 Glucose 125 mg/dL (74-106) H 10/22/21 02:10 Uric Acid 4.2 mg/dL (2.6-6.0) 10/22/21 02:10 Calcium 8.4 mg/dL (8.5-10.1) L 10/22/21 02:10 Total Bilirubin 0.3 mg/dL (0.2-1.0) 10/22/21 02:10 AST 17 U/L (15-37) 10/22/21 02:10 ALT 18 U/L (14-59) 10/22/21 02:10 Alkaline Phosphatase 178 U/L (46-116) H 10/22/21 02:10 Total Protein 6.4 g/dL (6.4-8.2) 10/22/21 02:10 Albumin 2.7 g/dL (3.4-5.0) L 10/22/21 02:10 Ur Random Creatinine 119.50 mg/dL 10/22/21 01:00 U Random Total Protein 67.2 mg/dL 10/22/21 01:00 U [place] Prot/Creat Ratio 0.56 10/22/21 01:00 COVID-19 Source Nasal/Nares 10/21/21 19:30 SARS-CoV-2 (PCR) Negative (Negative) 10/21/21 19:30 Patient ABO/Rh A Positive 10/21/21 21:47 Antibody Screen NEGATIVE 10/21/21 21:47 Subjective Interval history since last seen: Yolande progressed to full dilation and began pushing well. There were persistent variable decelerations. oxygen was administered by mask and Yolande was encouraged to stop pushing occasionally or to push on her side which had a positive effect on the heart pattern. Her urge to push was very strong and she was pushing effectively with slow descent of the vertex. Results Hemoglobin/Hematocrit: Hgb 12.6 g/dL (11.2-15.7) 10/21/21 21:47 Hct 37.6 % (36.0-46.0) 10/21/21 21:47 Abnormal Lab Findings: Abnormal Labs 10/21/21 10/22/21 21:47 02:10 WBC 16.99 H Sodium 135 L Carbon Dioxide 18.6 L Anion Gap 13.4 H Glucose 125 H Calcium 8.4 L Alkaline Phosphatase 178 H Albumin 2.7 L
--- NOTE | 2021-10-22 06:04 | OBVDS_ITS ---
Date of service: 10/22/21 Time of Service: 06:04 OB Labor/ Delivery Information Baby A Delivery Delivery Method: Spontaneaous Presentation: Cephalic Cephalic Position: Vertex Vertex Position: Left Occipital Anterior Amniotic Fluid: Meconium (thick) Estimated Blood Loss: 250 Delivery Outcome: Liveborn Infant Complications: tight nuchal cord slipped over the head prior to delivery of the body Infant Transferred: Remains with Mother Providers Nurse Profile Saw Setup Operator: Frances Dominguez Nurse: Lindsay Wilde Nurse: Lisha Sagastume Labor/Delivery Information Number of Babies in Womb: 1 Steroids Given: None Reason Steroids Not Administered: N/A Group Beta Strep: Negative Antibiotics Administered: No Rubella Status: Immune Blood Type: A+ Varicella Immunity: Immune Shoulder Dystocia: No Note: FHTs 120-140s during first stage of labor with intermittent variable decelerations. FHTs 120-130s in second stage with recurrent variable decelerations responsive to position changes and oxygen via mask. Yolande progressed to full dilation and began pushing forcefully. Second stage huddle was done. Spontaneous delivery of male delivered in BRIAN position. Baby was placed on mother's abdomen and dried and stimulated. Spontaneous cry. Cord was clamped and cut by the baby's father. Dr. Theodore was called due to meconium stained fluid and variable decelerations and she arrived shortly after the to assess the baby. The placenta delivered spontaneously and appears to by intact with a three vessel cord. Pitocin 30 units IV was administered before delivery of the placenta. The perineum was inspected and there was a small perineal abrasion which was repaired with one 3-0 vicryl suture under eidural analgesia. The baby did breastfeed. After delivery, Mother and baby and father of the baby were stable and bonding well in the delivery room and there were no complications. Stages of Labor Onset of Labor Date: 10/21/21 Onset of Labor Time: 15:15 Complete Dilatation Date: 10/22/21 Complete Dilatation Time: 03:05 Labor - Stage 1 Duration: 24 hours and 0 minutes ROM Baby A: 10/22/21 ROM Baby A: 00:44 ROM Total Time- Baby A: [id number] Delivery Date-Baby A: 10/22/21 Infant Delivery Time-Baby A: 05:09 Labor Stage 2 Duration: 2 hours and 4 minutes Placenta Delivery Date-Baby A: 10/22/21 Placenta Delivery Time-Baby A: 05:16 Labor-Stage 3 Duration: 7 minutes Total Length of Labor-Baby A: 13 hours and 54 minutes Placenta Status: Delivered Baby A Gender: Male Gestational Status: Term (39-41.6 wks) Gestational Age in Weeks/Days: 41 Weeks and 0 Days Score-1 Minute Interval(Baby A) Heart Rate-1 minute: 100 BPM or Greater Respiratory Effort- 1 minute: Spontaneous/Strong Cry Muscle Tone-1 minute: Active Movement Reflex Response-1 minute: Prompt Response Color-1 minute: Bluish Hands or Feet Total Score-1 minute: 9 Score-5 Minute Interval(Baby A) Heart Rate- 5 minute: 100 BPM or Greater Respiratory Effort-5 minute: Spontaneous/Strong Cry Muscle Tone-5 minute: Active Movement Reflex Response-5 minute: Prompt Response Color-5 minute: Bluish Hands or Feet Total Score- 5 minute: 9
--- NOTE | 2021-10-22 11:37 | W.ANESPOSTOP ---
Postoperative Evaluation Date, Time and Location Date Performed: 10/22/21 Time Performed: 11:37 Patient Location: Obstetrics Vital Signs Most Recent Imported Vital Signs: Most Recent Vital Signs Temp Pulse Resp BP Pulse Ox 37.4 C 112 H 14 115/69 98 10/22/21 07:30 10/22/21 07:32 10/22/21 07:30 10/22/21 07:32 10/22/21 07:30 Pain Score Most Recent Pain Score: Most Recent Pain Score Pain Level 7 10/21/21 18:20 Assessment Mental Status: Awake (Alert & Oriented to Patient Baseline) Airway and Respiratory Function: Patent airway with normal (patient baseline) respiratory exam Cardiovascular Function: Hemodynamically Stable Hydration Status: Adequately Hydrated Nausea & Vomiting: No Nausea or Vomiting Pain: Pain is tolerable per patient Peripheral Nerve Block: Patient did not receive a nerve block
[2021-10-22] MEDS: Acetaminophen 325 MG TAB 650 MG PO (19:48)
[2021-10-23] MEDS: Acetaminophen 325 MG TAB 650 MG PO (08:03)
[2021-10-23] MEDS: Ibuprofen 600 MG TAB PO (08:03)
[2021-10-23 08:39] VITALS: BP 126/83; PULSE 105; RESP 14; TEMP 36.8
--- NOTE | 2021-10-23 12:14 | W.PM.OBDISCH ---
Date of service: 10/23/21 Time of Service: 12:15 DS: Diagnosis Discharge Diagnosis (1) Variable deceleration: Status: Resolved Asessment and Plan: Caring for baby independently. Pain is managed well with oral analgesics. Voiding without difficulty. has been difficult due to poor latch and Yolande is working with Neetu JOHNSTON on a feeding plan when she goes home. . A - stable mother and baby , Post day 1, difficulty. P - Discharge to home today after circumcision. Routine post instructions. [facility] Discharge Plan Discharge Details Reason For Visit: LABOR Admit Date/Time: 10/21/21 21:36 Admit Provider: Frances Dominguez Attending Provider: Frances Dominguez Primary Care Provider: Frances Dominguez Home Meds and New Rx's Prescriptions: Continued Plus 29 mg iron- 1 mg tablet 1 tab PO DAILY Qty: 90 2RF Discontinued aspirin 81 mg tablet,delayed release (DR/EC) 81 mg PO DAILY Qty: 90 2RF Discharge Instructions Stand Alone Forms: BC Instructions, BC Post Vaginal Deliver Activity:: Activity as Tolerated Equipment/Supplies:: No Equipment Needed Diet:: As Tolerated OB:DS Summary Summary Vaginal Delivery Method: Spontaneaous Laceration Description: Perineal Laceration Extension: First Degree Contraception Discussed Contraception Discussed: Yes Contraceptive Plan: IUD (prefers no hormones, considering paragard), Infant Gender-Baby A: Male weight: 7 lb 14.281 oz Status at Discharge Functional status at discharge: independent ambulation Overall status at discharge: patient is back to baseline Mental Status: mental status grossly normal Speech and Movement: speech and movement normal Mood: congruent mood Affect: normal affect Exam Physical Exam Vital signs: Temp Pulse Resp BP Pulse Ox 98.2 F 105 H 14 126/83 98 10/23/21 08:39 10/23/21 08:39 10/23/21 08:39 10/23/21 08:39 10/22/21 07:30 Respiratory Exam Respiratory Exam: Normal Cardiovascular Exam Cardiovascular Exam: Normal Fundal Exam Fundus: Below Umbilicus Exam Perineum: Intact and Normal Comments: small perineal abrasion repaired with one suture Extremities Exam Extremity Exam: Normal Skin Exam Skin Exam: Normal Psychiatric Exam Psychiatric Exam: Normal PFSH All Active Problems (Updated 10/22/21 @ 05:32 by Frances Dominguez CNM) BMI 30.0-30.9,adult (Acute) Exercise-induced asthma (Acute 10/21/12) Family History (Updated 05/08/21 @ 10:25 by Frances Raymundo CNM) Mother Alive and well Father Alive and well Sister Alive and well Brother Alive and well Grandmother Alive and well Paternal Grandmother Cancer breast CA, at age 36 Social History (Updated 05/08/21 @ 09:28 by Frances Raymundo CNM) Smoking/Tobacco Use Status: Former Tobacco Use Tobacco: How many years used: 4 Second Hand Exposure: No Smoking risk assessment performed?: Yes Drug use: Never current occupation: [employer] What type of physical activity do you participate in: none Do you feel safe in your relationship?: Yes Female Reproductive History Menstrual control method: pills History History 1 Para 0 Hx # Term Pregnancies 0 Multiple births 0 Hx # Pregnancies 0 Ectopic pregnancies 0 AB induced 0 Hx Number of Living Children 0 AB spontaneous 0 DS: Data Vitals/I&O Vitals and I&O: Vital Signs Temperature 98.2 F 10/23/21 08:39 Temperature Source Oral 10/22/21 06:51 Pulse 105 H 10/23/21 08:39 Pulse Rhythm Regular 10/23/21 08:39 Respiratory Rate 14 10/23/21 08:39 Blood Pressure 126/83 10/23/21 08:39 Blood Pressure Mean 97 10/23/21 08:39 Pulse Oximetry 98 10/22/21 07:30 Pain Level 5 10/23/21 08:03
[2021-10-23 12:30] VITALS: BP 118/64; PULSE 88; RESP 16; TEMP 36.6; O2SAT 99
== END 2021-10-23 12:57 | disposition home or self-care (01) | DRG 807 ==
PROVIDERS: Admitting Provider Advanced Practice Midwife; PCP Advanced Practice Midwife; Visit Provider Advanced Practice Midwife
DX: O99.52 Diseases of the respiratory system complicating childbirth (principal); Z37.0 Single live birth; O69.1XX0 Labor and delivery complicated by cord around neck, with compression, not applicable or unspecified; O77.0 Labor and delivery complicated by meconium in amniotic fluid; O70.0 First degree perineal laceration during delivery; O99.892 Other specified diseases and conditions complicating childbirth; O76 Abnormality in fetal heart rate and rhythm complicating labor and delivery; R00.0 Tachycardia, unspecified; Z3A.40 40 weeks gestation of pregnancy; J45.990 Exercise induced bronchospasm
CPT/HCPCS: 36415; 80053; 85027; 86850; 86900; 86901; 87635; 82565; 84156; 84550; G0378; J3490

== ENCOUNTER 2023-05-12 11:04 | Outpatient (REF) | payer OTHER, SELFPAY ==
[2023-05-12 15:50] LABS: Bilirubin Negative (Negative); Blood Moderate (Negative); Clarity Clear (Clear); Glucose Negative (Negative); Ketones Negative (Negative); Leukocyte Esterase Trace (Negative); Nitrite Negative (Negative); Specific Gravity <= 1.005 (1.005-1.025); Urobilinogen 0.2 mg/dL (Up to 0.2); pH 6.5 (5-8)
[2023-05-12 16:23] LABS: Bacteria Rare HPF (Negative); C & S Indicated? Yes; Crystals Negative HPF (Negative); Epithelial Cells Rare HPF (Negative); Mucus Negative (Negative)
== END 2023-05-12 11:05 | disposition home or self-care (01) ==
LOC: LBN 11:04
PROVIDERS: PCP Advanced Practice Midwife; Visit Provider Physician Assistant
DX: R39.9 Unspecified symptoms and signs involving the genitourinary system (principal)
CPT/HCPCS: 81003; 81015; 87086

== ENCOUNTER 2024-03-18 09:07 | Outpatient (REF) | payer OTHER, SELFPAY ==
--- NOTE | 2024-03-18 08:40 | PAPFT_PTH ---
PATIENT: Yolande Crandall LOC: [facility] U#:[id number] AGE/SX: 28/F ROOM: RE03/18/[address]: PAGE Tapia : 1995 BED: DIS: 03/18/2024 SPEC #: [id number] RECD: 03/18/24 13:16 STATUS: LILIANA RETrinity #: [id number] KATY: 03/18/24 08:[address]: Caroline Estrada DEPT: [facility] Cytology RECD BY: Maday Lehman Tissues: 1 - CX/ENDOCX FOR PAP SMEARS Procedures: PAP THIN PREP/[facility] Screening Comments: [id number] (CHLAMYDIA/GC)
[2024-03-19 13:35] LABS: GC Result Negative (Negative)
[2024-03-19 14:17] LABS: Specimen Description THIN PREP
[2024-03-19 14:24] LABS: Chlamydia Result Positive (Negative)
== END 2024-03-18 09:08 | disposition home or self-care (01) ==
LOC: LBN 09:07
PROVIDERS: PCP Nurse Practitioner Family; Visit Provider Nurse Practitioner Family
DX: Z23 Encounter for immunization (principal); E66.9 Obesity, unspecified; Z00.00 Encounter for general adult medical examination without abnormal findings
CPT/HCPCS: 87491; 87591; 88142

== ENCOUNTER 2024-07-22 10:42 | Outpatient (CLI) | payer OTHER, SELFPAY ==
[2024-07-22 12:33] LABS: HCT 38.7 % (36.0-46.0); HGB 13.4 g/dL (11.2-15.7); MCH 30.9 pg (27.0-33.0); MCHC 34.6 % (32.0-36.0); MCV 89 fL (80-95); MPV 10.5 fL (8.0-11.0); Platelet Count 309 10^3/uL (130-400); RBC 4.34 10^6/uL (3.93-5.22); WBC 8.46 10^3/uL (4.4-10.8)
[2024-07-22 13:06] LABS: Hemoglobin A1C 5.2 % (<5.7)
[2024-07-22 13:10] LABS: ALT 19 U/L (14-59); AST 13 U/L (15-37); Albumin 3.9 g/dL (3.4-5.0); Alkaline Phosphatase 57 U/L (46-116); Anion Gap 11.4 mmol/L (3-11); BUN 15 mg/dL (7-18); Bilirubin, Total 0.35 mg/dL (0.2-1.0); CO2 23.6 mmol/L (21.0-32.0); CREATININE 0.9 mg/dL (0.55-1.02); Calcium 8.9 mg/dL (8.5-10.1); Calculated LDL 127 mg/dL (<100); Chloride 106 mmol/L (98-107); Cholesterol 220 mg/dL (<200); Estimated GFR 89.86 (mL/min/1.73m2); Glucose 85 mg/dL (74-106); HDL Cholesterol 61 mg/dL (40-60); Potassium 3.7 mmol/L (3.5-5.1); Sodium 141 mmol/L (136-145); TSH (W/Ref FT4) 1.45 uIU/mL (0.36-3.74); Total Protein 7.3 g/dL (6.4-8.2); Triglyceride 162 mg/dL (<150)
[2024-07-22 18:54] LABS: HIV-1/2 Ag & Ab Screen Negative (Negative)
[2024-07-22 18:57] LABS: HBs Antibody, Quant <3.1 mIU/mL (See Note); Hep B Surface Ab Negative (See Note); Hepatitis B Core Antibody Negative (Negative); Hepatitis B Surface Antigen Negative (Negative)
[2024-07-22 20:03] LABS: Hepatitis C Ab w Rflx HCV PCR Negative (Negative)
[2024-07-23 09:26] LABS: Syphilis Serology (RPR) Negative (Negative)
== END 2024-07-22 10:43 | disposition home or self-care (01) ==
LOC: LOS 10:42
PROVIDERS: PCP Nurse Practitioner Family; Referring Provider Nurse Practitioner Family; Visit Provider Nurse Practitioner Family
DX: E66.9 Obesity, unspecified (principal); Z00.00 Encounter for general adult medical examination without abnormal findings; Z11.4 Encounter for screening for human immunodeficiency virus [HIV]; Z11.59 Encounter for screening for other viral diseases; Z11.3 Encounter for screening for infections with a predominantly sexual mode of transmission
CPT/HCPCS: 80053; 80061; 85027; 86704; 86706; 86803; 87340; 87389; 87491; 87591; 83036; 84443; 86592

== ENCOUNTER 2024-07-22 15:44 | Outpatient (REF) | payer OTHER, SELFPAY ==
[2024-07-26 11:42] LABS: Chlamydia Result Negative (Negative); GC Result Negative (Negative)
== END 2024-07-22 15:45 | disposition home or self-care (01) ==
LOC: LBN 15:44
PROVIDERS: PCP Nurse Practitioner Family; Visit Provider Nurse Practitioner Family
DX: A74.9 Chlamydial infection, unspecified (principal); Z11.4 Encounter for screening for human immunodeficiency virus [HIV]; Z11.3 Encounter for screening for infections with a predominantly sexual mode of transmission; Z11.59 Encounter for screening for other viral diseases; E66.9 Obesity, unspecified; Z30.431 Encounter for routine checking of intrauterine contraceptive device
CPT/HCPCS: 87491; 87591